=== PATIENT | female | born 1940 | race Caucasian/White ===

== ENCOUNTER 2016-06-25 06:57 | Day surgery (SDC) | payer BC ==
[2016-06-25] MEDS ORDERED: LIDOCAINE 2% MDV (20MG/ML) 20ML VIAL IV ONE (13:51)
[2016-06-25] MEDS ORDERED: PROPOFOL 10 MG/ML VIAL IV ONE (13:51)
--- NOTE | 2016-06-25 15:04 | Operative Note ---
DATE OF PROCEDURE: 06/25/16 PREOPERATIVE DIAGNOSIS: NUCLEAR SCLEROTIC CATARACT, RIGHT EYE. POSTOPERATIVE DIAGNOSIS: NUCLEAR SCLEROTIC CATARACT, RIGHT EYE. PROCEDURE: PHACOEMULSIFICATION OF CATARACTOUS LENS WITH IMPLANTATION OF INTRA- OCULAR LENS. SURGEON: SENA FRY M.D. LENS IMPLANT USED: TANG MODEL PCB00 +21.5 DIOPTERS. COMPLICATIONS: NONE. PROCEDURE: The patient was given reference ruperto at the 0 and 180-degree position prior to being blocked in the usual fashion with the retrobulbar block in the right eye. The patient was then prepped and draped in the usual fashion and a lid speculum placed in the right eye. At this point, the corneal marker was used to create markings on the cornea at 168 degrees after which, a scleral tunnel wound was placed at the temporal limbus of 2.4 mm cord length. A paracentesis was placed 2 hours to the left and right of this and the chamber deepened with Viscoelastic. The keratome was used to enter through the scleral tunnel wound after which the continuous circular capsulorrhexis was accomplished without difficulty. Hydrodissection of the lens was performed and the nucleus of the lens was removed in a divide and conquer fashion. The residual cortical material was irrigated and aspirated from the eye and the bag and chamber were then reinflated with Viscoelastic. The intraocular lens was placed into the capsular bag and oriented to a position 10 degrees shorter the intended final access. The residual Viscoelastic was removed from the eye and the eye was then reinflated and the intraocular lens dialed into position at 168 degrees. The wound was noted to be water-tight to direct encounter pressure. The lid speculum was removed and the eye was patched and shielded to be re-examined later in the afternoon. Sena Fry M.D. Date & Time JOB NUMBER: [id number] MTDD
== END 2016-06-25 09:45 | disposition home or self-care (01) ==
LOC: SUR 06:57
PROVIDERS: ATTEND Ophthalmology
DX: H25.11 Age-related nuclear cataract, right eye (principal); I10 Essential (primary) hypertension

== ENCOUNTER 2017-06-27 12:30 | Emergency (ER) | payer BC ==
[2017-06-27] MEDS ORDERED: MECLIZINE 25 MG TABLET PO ONE (12:51)
--- NOTE | 2017-06-27 12:57 | Emergency Department Record ---
History of Present Illness - General Chief Complaint: Dizziness Stated Complaint: DIZZINESS X 1WK, VOMITTING Time Seen by Provider: 06/27/17 12:44 Source: Patient, Family Mode of Arrival: Ambulatory Limitations: No limitations - History of Present Illness Initial Comments: 76 yo female presents with one week of dizziness. She awoke initially with the symptoms. the symptoms are worse with position changes and lying down. She denies changes in her vision, double vision, speech changes, or weakness to one side or the other. She had had vertigo in the past. She does not have symptoms if sitting up or still. The symptoms occur with a head turn then stop with sitting still. No headaches. PCP Jayson Monae. No history of stroke. MD Complaint: Dizziness -: Week(s) (1) Timing: Awoke with symptoms Description: Difficulty walking, "Room spinning", Sense of movement History of Same: Yes (Vertigo in the past) Severity: Moderate Improves With: Remaining still, Other (sitting up) Associated Symptoms: Denies other symptoms - [place] Coma Scale Eye Response: (4) Open spontaneously Motor Response: (6) Obeys commands Verbal Response: (5) Oriented Justa Total: 15 - Related Data Home Medications Medication Instructions Recorded Confirmed Last Taken Amlodipine Besylate [Norvasc] 10 mg PO DAILY 06/27/17 06/27/17 06/27/17 Ergocalciferol (Vitamin D2) 50,000 unit PO WEEKLY 06/27/17 06/27/17 06/25/17 [Vitamin D2] Furosemide [Lasix] 40 mg PO BID 06/27/17 06/27/17 06/27/17 Hydrocodone/Acetaminophen [Chamberino 1 each PO BID 06/27/17 06/27/17 06/27/17 5-325 Tablet] Metformin HCl 500 mg PO BID 06/27/17 06/27/17 06/27/17 Omeprazole Magnesium [Prilosec Otc] 20 mg PO DAILY 06/27/17 06/27/17 06/27/17 Omeprazole [Prilosec] 20 mg PO DAILY 06/27/17 06/27/17 06/27/17 Potassium Chloride 20 meq PO BID 06/27/17 06/27/17 06/27/17 Sertraline HCl [Zoloft] 100 mg PO DAILY 06/27/17 06/27/17 06/27/17 Previous Rx's Medication Instructions Recorded Meclizine HCl [Antivert] 25 mg PO Q8H #20 tablet 06/27/17 Allergies Allergy/AdvReac Type Severity Reaction Status Date / Time No Known Drug Allergies Allergy Unknown Verified 06/27/17 13:03 [NO KNOWN DRUG ALLERGIES] Review of Systems Constitutional: Denies: Chills, Fever, Malaise, Weakness Eyes: Denies: Eye discharge, Eye pain, Photophobia, Vision change ENT: Denies: Congestion, Throat pain Respiratory: Denies: Cough, Dyspnea, Hemoptysis, Stridor, Wheezes Cardiovascular: Denies: Chest pain, Palpitations, Syncope Endocrine: Denies: Fatigue Gastrointestinal: Denies: Abdominal pain, Diarrhea, Nausea, Vomiting Genitourinary: Denies: Dysuria, Frequency Musculoskeletal: Denies: Arthralgia, Back pain, Myalgia, Neck pain Skin: Denies: Bruising, Change in color, Rash Neurological: Reports: Vertigo. Denies: Abnormal gait, Confusion, Headache, Numbness, Paresthesias, Seizure, Tingling, Tremors, Weakness Psychiatric: Denies: Anxiety Hematological/Lymphatic: Denies: Anemia, Blood Clots, Easy bleeding, Easy bruising, Swollen glands Past Medical History - SOCIAL HISTORY Smoking Status: Never smoker - RESPIRATORY Hx Respiratory Disorders: Yes Hx Bronchitis: Yes (years ago) Hx Pneumonia: Yes (years ago) - CARDIOVASCULAR Hx Cardio Disorders: Yes Hx Edema: Yes Hx Hypertension: Yes (meds good control) - NEURO Hx Neuro Disorders: Yes Hx Dizziness: Yes (hx vertigo x1) Comment:: recent falls due to being off balance - GI Hx GI Disorders: No - Hx Genitourinary Disorders: No - ENDOCRINE Hx Endocrine Disorders: Yes Hx Diabetes: Yes Hx Thyroid Disease: No Comment:: fbs run 97-119 lately - MUSCULOSKELETAL Hx Musculoskeletal Disorders: Yes Hx Arthritis: Yes (all over) - PSYCH Hx Psych Problems: Yes Hx Depression: Yes ( January 2015) - HEMATOLOGY/ONCOLOGY Hx Hematology/Oncology Disorders: Yes Hx Blood Transfusions: Yes (post 1966) Hx Blood Transfusion Reaction: No Family Medical History Hx Cancer: Brother/Sister *Cancer Comment: sister-breast Hx Heart Disease: Mother, Brother/Sister, Grandparents *Heart Comment: all have had CHF Hx HTN: Mother, Brother/Sister, Grandparents Hx Kidney Disease: Mother *Kidney Comment: renal failure Physical Exam - General General Appearance: Alert, Oriented x3, Cooperative, No acute distress Limitations: No limitations - Head Head exam: Normal inspection - Eye Eye exam: Normal appearance, PERRL, EOMI, Nystagmus (With Rightward gaze). negative: Conjunctival injection, Scleral icterus - ENT ENT exam: Normal exam, Mucous membranes moist, Normal orophraynx, TM's normal bilaterally (no wax) Ear exam: Normal external inspection Nasal Exam: Normal inspection Mouth exam: Normal external inspection Teeth exam: Normal inspection Throat exam: Normal inspection - Neck Neck exam: Normal inspection, Full ROM. negative: Tenderness - Respiratory Respiratory exam: Normal lung sounds bilaterally. negative: Respiratory distress - Cardiovascular Cardiovascular Exam: Regular rate, Normal rhythm, Normal heart sounds Peripheral Pulses: 2+: Radial (R), Radial (L) - GI/Abdominal GI/Abdominal exam: Soft. negative: Tenderness - Rectal Rectal exam: Deferred - exam: Deferred - Extremities Extremities exam: Normal inspection, Full ROM, Normal capillary refill. negative: Tenderness - Back Back exam: Reports: Normal inspection - Neurological Neurological exam: Alert, CN II-XII intact, Normal gait, Oriented X3, Other (No PND, Normal FTN, Positive horizontal nystagmus). negative: Altered, Motor sensory deficit - Psychiatric Psychiatric exam: Normal affect, Normal mood. negative: Anxious, Manic - Skin Skin exam: Dry, Intact, Normal color, Warm. negative: Diaphoretic, Erythema, Mottled Course - Reevaluation(s) Reevaluation #1: 06/27/17 12:56 Vitals reviewed No acute changes Antivert provided 06/27/17 13:41 The labs were reviewed No acute changes except mild increase in glucose.at 187. 06/27/17 14:00 The HCT was reviewed. No acute changes. No acute hemorrhage or stroke. Chronic changes notes with old lacunar BG infarct. No new findings. The patient is doing very well. Her symptoms are more consistent with vertigo than stroke with her nystagmus, symptoms fatigue if still, and no other associated symptoms to suggest stroke. 06/27/17 17:32 Medical Decision Making - Lab Data Result diagrams: 06/27/17 13:00 06/27/17 13:00 Disposition Disposition: Discharge Clinical Impression: Vertigo Disposition: Home, Self-Care Condition: (1) Good Instructions: Vertigo (ED), Dizziness (ED) Additional Instructions: Call your doctor for close follow up this week as scheduled Return to the ER if worse, or any new symptoms such as weakness, speech changes , vision changes, double vision. Prescriptions: Meclizine HCl [Antivert] 25 mg PO Q8H #20 tablet Forms: Patient Portal Access Time of Disposition: 13:41 Quality - Quality Measures Quality Measures: N/A - Blood Pressure Screening Does Patient Have Any of the Following: No Blood Pressure Classification: Hypertensive Reading Systolic Measurement: 143 Diastolic Measurement: 75 Screening for High Blood Pressure: < Pre-Hypertensive BP, F/U Documented > [ G8950] Pre-Hypertensive Follow-up Interventions: Referral to alternative/primary care provider.
[2017-06-27 13:07] LABS: BASO % 0.6 % (0-6); GRAN % 55.7 % (47-80); HEMOGLOBIN 15.9 gm/dl (11.6-16.0); LYMPH % 29.4 % (16-45); MEAN CELL VOLUME 86.4 fl (81-97); MEAN CORPUSCULAR HGB CONC 32.4 g/dl (32-36); MEAN PLATELET VOLUME 9.1 fl (7.4-10.4); MONO % 10.3 % (0-9); PLATELET COUNT 264 K/uL (130-400); RED BLOOD COUNT 5.67 M/uL (3.80-5.40); RED CELL DISTRIBUTION WIDTH 15.3 % (11.5-14.5); WHITE BLOOD COUNT W/O DIFF 8.2 K/uL (4.2-12.2)
[2017-06-27 13:19] LABS: BLOOD UREA NITROGEN 17 mg/dL (8-23); CREATININE 0.9 mg/dL (0.5-0.9); EST GLOMERULAR FILTRATION RATE > 60 mL/min
[2017-06-27 13:20] LABS: TOTAL PROTEIN 8.1 g/dL (6.6-8.7)
[2017-06-27 13:22] LABS: GLUCOSE,RANDOM 187 mg/dL (74-109)
[2017-06-27 13:24] LABS: ALB/GLOB RATIO 1.3 (1.1-1.8); ALBUMIN 4.5 g/dL (4.0-5.0); ALT/SGPT 27 U/L (<33); AST/SGOT 46 U/L (10.0-35.0)
[2017-06-27 13:25] LABS: ALKALINE PHOSPHATASE 125 U/L (35-104)
--- NOTE | 2017-06-28 10:00 | CT SCAN REPORT ---
EXAM: EMERGENCY HEAD CT WITHOUT CONTRAST HISTORY: DIZZINESS FOR A WEEK. TECHNIQUE: Axial CT scan of the head was performed without IV contrast. Comparison: None. FINDINGS: No definite acute intracranial hemorrhage identified. No focal mass effect or midline shift apparent. Mild generalized atrophy with chronic appearing deep white matter changes, nonspecific, but likely representing some chronic small vessel deep white matter ischemic disease. There is probably a small chronic lacunar infarct in the lentiform nucleus of the right basal ganglia inferiorly. This could also be a small perivascular space. No definite acute infarct or intracranial mass lesion seen. No depressed calvarial fracture evident. IMPRESSION: 1. GENERALIZED ATROPHY WITH CHRONIC APPEARING DEEP WHITE MATTER CHANGES AND PROBABLY A SMALL CHRONIC LACUNAR INFARCT IN THE RIGHT BASAL GANGLIA. 2. NO ACUTE INTRACRANIAL HEMORRHAGE OR FOCAL MASS EFFECT IDENTIFIED. JOB NUMBER: [id number] [facility]
== END 2017-06-27 14:37 | disposition home or self-care (01) ==
LOC: ER 12:30
DX: R42 Dizziness and giddiness (principal); R11.11 Vomiting without nausea; R26.2 Difficulty in walking, not elsewhere classified; E11.9 Type 2 diabetes mellitus without complications; I10 Essential (primary) hypertension; Z79.84 Long term (current) use of oral hypoglycemic drugs
CPT/HCPCS: 70450; 80053; 85025; 99283; 99284

== ENCOUNTER 2019-04-27 11:40 | Emergency (ER) | payer BC ==
--- NOTE | 2019-04-27 12:11 | Emergency Department Record ---
History of Present Illness - General Chief Complaint: Ankle/Foot Injury Stated Complaint: FELL INSIDE HER HOME Time Seen by Provider: 04/27/19 11:51 Source: Patient, Family Mode of Arrival: Stretcher Limitations: No limitations - History of Present Illness Initial Comments: The patient is here by EMS due to falling at home and being unable to get up. She was getting dressed and was putting her underwear on when she lost her balance and slipped to the floor. She may have hit her head mildly and had no LOC. After falling she was unable to get up. She then crawled to her phone and called EMS who brought her here to the ER. Presently the patient denies any problems or pain. There has been no CP, SOB, RASHAUN, BAÑUELOS, neck pain, AP, vomiting, or confusion. MD Complaint: Fall Onset/Timin -: Hour(s) Type of Injury: Other Place: Home - Related Data Allergies Allergy/AdvReac Type Severity Reaction Status Date / Time No Known Drug Allergies Allergy Unknown Verified 06/27/17 13:03 [NO KNOWN DRUG ALLERGIES] Travel Screening - Travel/Exposure Within Last 30 Days Have you traveled within the last 30 days?: No - Travel/Exposure Within Last Year Have you traveled outside the [place] in the last year?: No - Additonal Travel Details Have you been exposed to anyone with a communicable illness?: No - Travel Symptoms Symptom Screening: None Review of Systems Constitutional: Denies: Chills, Fever Eyes: Denies: Eye discharge ENT: Denies: Congestion Respiratory: Denies: Cough Cardiovascular: Denies: Arrhythmia, Chest pain Endocrine: Denies: Fatigue Gastrointestinal: Denies: Nausea Genitourinary: Denies: Dysuria Musculoskeletal: Denies: Arthralgia Skin: Denies: Bruising Past Medical History - SOCIAL HISTORY Smoking Status: Never smoker - RESPIRATORY Hx Respiratory Disorders: Yes Hx Bronchitis: Yes (years ago) Hx Pneumonia: Yes (years ago) - CARDIOVASCULAR Hx Cardio Disorders: Yes Hx Edema: Yes (AT TIMES) Hx Hypertension: Yes (meds good control) - NEURO Hx Neuro Disorders: Yes Hx Dizziness: Yes (HX OF) Hx Headaches: Yes (FREQUENT) Comment:: FREQUENT FALLS R/T BALANCE ISSUES DOING PT - GI Hx GI Disorders: Yes Hx Reflux: Yes (ON MEDS WITH FAIR CONTROL) - Hx Genitourinary Disorders: Yes Hx Bladder Problem: Yes (LEAKS AT TIMES) Hx Renal Disease: Yes (LOW GFR) - ENDOCRINE Hx Endocrine Disorders: Yes Hx Diabetes: Yes (DIET CONTROLLED) Hx Thyroid Disease: No Comment:: DOESNT CHECK BLOOD SUGARS REGULARLY - MUSCULOSKELETAL Hx Musculoskeletal Disorders: Yes Hx Arthritis: Yes (all over) Hx Gout: Yes (HX OF) - PSYCH Hx Psych Problems: Yes Hx Depression: Yes ( January 2015) - HEMATOLOGY/ONCOLOGY Hx Hematology/Oncology Disorders: Yes Hx Blood Transfusions: Yes (post 1966) Hx Blood Transfusion Reaction: No Family Medical History Any Significant Family History?: Yes Hx Cancer: Brother/Sister *Cancer Comment: sister-breast Hx Heart Disease: Mother, Brother/Sister, Grandparents *Heart Comment: all have had CHF Hx HTN: Mother, Brother/Sister, Grandparents Hx Kidney Disease: Mother *Kidney Comment: renal failure Physical Exam - General General Appearance: Alert, Oriented x3, Cooperative, No acute distress - Head Head exam: Atraumatic, Normocephalic, Normal inspection (There are no signs of any head trauma.) - Eye Eye exam: Normal appearance, PERRL - ENT Throat exam: Normal inspection. negative: Tonsillar erythema, Tonsillar exudate - Neck Neck exam: Normal inspection, Full ROM. negative: Tenderness - Respiratory Respiratory exam: Normal lung sounds bilaterally. negative: Respiratory distress - Cardiovascular Cardiovascular Exam: Regular rate, Normal rhythm, Normal heart sounds - GI/Abdominal GI/Abdominal exam: Soft, Normal bowel sounds. negative: Tenderness - Extremities Extremities exam: Normal inspection, Full ROM, Normal capillary refill. negative: Tenderness - Neurological Neurological exam: Alert, Normal gait. negative: Abnormal gait, Motor sensory deficit - Psychiatric Psychiatric exam: negative: Anxious - Skin Skin exam: negative: Rash Course Vital Signs 04/27/19 04/27/19 11:45 12:02 Temperature 98.2 F 98.2 F Pulse Rate 79 Pulse Rate [ 79 Pulse Ox Probe] Respiratory 18 18 Rate Blood Pressure 147/76 Blood Pressure 147/76 [Left Arm] Pulse Ox 97 97 - Reevaluation(s) Reevaluation #1: The patient is doing very well at this time. She is up walking with her cane normally and without any ataxia. She is instructed to see her PCP for recheck and to use her walker at home. 04/27/19 12:48 Medical Decision Making - Data Complexity MDM Data: Labs Ordered and/or Reviewed, X-Ray Ordered and/or Reviewed - Lab Data Result diagrams: 04/27/19 12:10 04/27/19 12:10 - Radiology Data Radiology results: Report reviewed (Head CT: Neg for acute intracranial abnormalities.) Disposition Disposition: Discharge Clinical Impression: Frequent falls Disposition: Home, Self-Care Condition: (2) Stable Instructions: Head Injury (ED) Additional Instructions: Please continue your regular medicines and please see your doctor next week if needed. Please use your walker for ambulating. Return to the ER for any worsening symptoms. Forms: Patient Portal Access Time of Disposition: 12:47 Quality - Quality Measures Quality Measures: N/A - Blood Pressure Screening View Details: Yes Does Patient Have Any of the Following: No Blood Pressure Classification: Hypertensive Reading Systolic Measurement: 145 Diastolic Measurement: 75 Screening for High Blood Pressure: < First Hypertensive BP, F/U Documented > [G8950] First Hypertensive Follow-up Interventions: Referral to alternative/primary care provider.
[2019-04-27 12:20] LABS: ABSOLUTE NEUTROPHIL COUNT 3.82; BASO % 0.5 % (0-6); EOS % 3.7 % (0-6); GRAN % 59.1 % (47-80); HEMATOCRIT 45.9 % (35.0-47.0); HEMOGLOBIN 14.9 gm/dl (11.6-16.0); LYMPH % 26.2 % (16-45); MEAN CELL VOLUME 87.8 fl (81-97); MEAN CORPUSCULAR HEMOGLOBIN 28.5 pg (27-33); MEAN CORPUSCULAR HGB CONC 32.5 g/dl (32-36); MEAN PLATELET VOLUME 9.5 fl (7.4-10.4); MONO % 10.5 % (0-9); PLATELET COUNT 202 K/uL (130-400); RED BLOOD COUNT 5.23 M/uL (3.80-5.40); RED CELL DISTRIBUTION WIDTH 15.5 % (11.5-14.5); WHITE BLOOD COUNT W/O DIFF 6.5 K/uL (4.2-12.2)
[2019-04-27 12:33] LABS: TOTAL PROTEIN 7.6 g/dL (6.6-8.7)
[2019-04-27 12:38] LABS: ALB/GLOB RATIO 1.4 (1.1-1.8); ALBUMIN 4.4 g/dL (4.0-5.0)
--- NOTE | 2019-04-27 12:38 | CT SCAN REPORT ---
EXAMINATION: CT Head without IV Contrast EXAM DATE: 04/27/2019 12:27 PM TECHNIQUE: Standard protocol CT images of the head were obtained without intravenous contrast. Oneil l and sagittal reconstructed images were created. INDICATION: Frequent falls and head trauma. COMPARISON: CT head 04/25/2019 and 06/27/2017 HAND DOMINANCE: Unknown. ENCOUNTER: Not applicable FINDINGS: 1. No intracranial mass effect, shift of midline structures, intra-axial or extra-axial hemorrhage, o r other extra-axial fluid collections. 2. Brain volume and ventricular size are appropriate for patient's stated age. No ventricular outflow obstruction. 3. King-white matter differentiation is preserved. No sulcal effacement. No suspicious areas of alter ed attenuation. Extensive burden of supratentorial white matter hypodensity. 4. Midline structures and craniocervical junction are unremarkable. 5. Intracranial calcified atherosclerotic disease in the carotid siphons and intradural segments of t he vertebral arteries. 6. No depressed or widely calvarial fractures. No aggressive calvarial lesions. 7. Visualized paranasal sinuses and temporal bone structures are well aerated. Bilateral lens replace ment. IMPRESSION: Senescent and extensive chronic microangiopathic changes without acute intracranial abnormality to th e limits of noncontrast CT technique. Dictated by: Lakisha Alarcon MD on 04/27/2019 12:31 PM. .
== END 2019-04-27 12:59 | disposition home or self-care (01) ==
LOC: ER 11:40
DX: S09.90XA Unspecified injury of head, initial encounter (principal); M54.2 Cervicalgia; R53.1 Weakness; W01.10XA Fall on same level from slipping, tripping and stumbling with subsequent striking against unspecified object, initial encounter; Y92.009 Unspecified place in unspecified non-institutional (private) residence as the place of occurrence of the external cause; I10 Essential (primary) hypertension
CPT/HCPCS: 70450; 80053; 85025; 99284